=== PATIENT | male | born 1935 | race Caucasian/White ===

== ENCOUNTER 2020-05-18 16:05 | Emergency (ER) | payer OTHER, SELFPAY ==
[~2020-05-18] VITALS: Ht 175.3 cm; Wt 2.6 kg
[2020-05-18 16:55] VITALS: Ht 175.3 cm; Wt 2.6 kg
[2020-05-18 17:22] LABS: BASOPHIL % 0.3 % (0-2); PLATELET COUNT 201 x10^3mcL (130-400)
[2020-05-18 17:36] LABS: ALKALINE PHOSPHATASE 86 U/L (46-116); ALT/SGPT 26 U/L (16-63); AST/SGOT 34 U/L (15-37); BILIRUBIN TOTAL 0.6 mg/dL (0.20-1.00); CALCIUM 7.3 mg/dL (8.5-10.1); CARBON DIOXIDE 21.3 mmol/L (21-32); CHLORIDE SERUM 100 mmol/L (98-107); GLUCOSE SERUM 163 mg/dL (74-106); SODIUM SERUM 135 mmol/L (136-145); TOTAL PROTEIN, SERUM 6.8 g/dL (6.4-8.2)
[2020-05-18 17:41] LABS: C REACTIVE PROTEIN 15.9 mg/dL (<=0.9)
[2020-05-18 17:43] LABS: POTASSIUM SERUM 2.9 mmol/L (3.5-5.1)
[2020-05-18 18:30] VITALS: BP 122/94
[2020-05-21] MEDS ORDERED: FLOMAX0.4 MG PO (14:47)
[2020-05-21] MEDS ORDERED: ALLERGY10 M3 PO (14:48)
== END 2020-05-18 18:48 | disposition home or self-care (01) ==
LOC: ED 16:05
PROVIDERS: Emergency Medicine
DX: U07.1 COVID-19 (principal); E87.6 Hypokalemia; I10 Essential (primary) hypertension; E11.9 Type 2 diabetes mellitus without complications; Z88.1 Allergy status to other antibiotic agents
CPT/HCPCS: 85378; Q0092; U0003-CS